=== PATIENT | male | born 1955 | race Caucasian/White ===

== ENCOUNTER 2023-03-17 05:28 | Emergency (ER) | payer MEDICARE, OTHER, SELFPAY ==
[2023-03-17 05:30] VITALS: BP 162/80
[2023-03-17 05:51] VITALS: BMI 27.8
[2023-03-17 05:55] VITALS: BP 124/73
--- NOTE | 2023-03-17 05:55 | ED.GENMED ---
History of Present Illness
General
Chief Complaint: Dizziness
Source: patient
Exam Limitations: none
Time Seen by Provider: 03/17/23 05:55
Travel History
Have you had any contact with someone who has COVID-19?: No
Do you have any symptoms of coronavirus? Fever > 100 degrees, chills, cough, shortness of breath, sore throat, loss of taste or smell, muscle aches, or headache?: No
History of Present Illness
History of Present Illness:
67-year-old male primarily complaining of a burping sensation followed by panic starting at 2 AM. Initial symptoms lasted a few hours. Then seemed to resolve but recurred mildly. Patient checked his blood pressure which was elevated at 180 then
150 systolic. [place] very panicky during this episode. No shearing pain no back pain no exertional symptoms. In addition patient has had vertigo however this has been going on for a year is intermittent usually lasting 10 to 20 seconds. He will
get 1-2 episodes a week. He is not here primarily for this issue. Patient does exercise regularly. He was at the gym 2 days ago doing cardio and lifting without difficulty. He also walks 3 miles yesterday without issues. Patient is worried that
this is cardiac as his friend had GI like symptoms presenting with heart attack.
Past History
Social History
Tobacco: Non-smoker
Personal:
Employment: Employed (Artist)
Review of Systems
Review of Systems
All Other Systems: Not applicable
Constitutional: Denies fever
Respiratory: Denies trouble breathing
ABD/GI: Denies abdominal pain, bloody stools or black stools
Phy Exam
Physical Exam
Physical Exam:
GENERAL: Alert and oriented in no apparent distress
EYE: Orbits normal.
NECK: Supple, no carotid bruit
ENT: Pharynx without erythema
CARDIAC: Regular rate and rhythm without any obvious murmurs.
LUNGS: Clear breath sounds,normal
ABDOMEN: Soft, without focal tenderness or distention
NEUROLOGICAL: Alert and oriented , cranial nerves II through XII intact. Speech normal. [id number] normal. Good upper and lower extremity strength.
SKIN: Warm and dry, no rash or lesion, no discoloration, skin intact.
MUSCULOSKELETAL: No edema,no deformity.Good color
PSYCH: Normal and appropriate interaction.
Course
Orders/Labs/Results
Orders:
Orders
03/17/23 05:34
Electrocardiogram (*1) Urgent
Reason for Study: Vertigo / Dizzy
EKG- Treatment ONCE
03/17/23 06:11
Cardiac Monitoring- Treatment ONCE
IV Insert/Care/Rem.- Treatment PRN
CR Chest - 2 Views Urgent
Comment:
Reason For Exam: cp
Pulse Ox/cont/shift [RESP] Stat
Quantity: 1
03/17/23 06:15
Complete Blood Count/With Diff Urgent
Comprehensive Metabolic Panel Urgent
D-Dimer Urgent
Lipase Urgent
Troponin I Urgent
03/17/23 07:52
EKG- Treatment ONCE
03/17/23 09:05
Troponin I Urgent
03/17/23 09:15
Electrocardiogram (*1) Stat
Reason for Study: Other
Other Reason for Exam: chest pain
Abnormal Lab Results
03/17/23
06:15
Plt Count 506 H 10^3/uL
(130-400)
Glucose 105 H mg/dl
(70-99)
03/17/23 06:15
03/17/23 06:15
Vital Signs
Initial and Last Documented VS:
Initial Vital Signs
Temp Pulse Resp BP Pulse Ox
97.4 F 64 18 162/80 98
03/17/23 05:30 03/17/23 05:30 03/17/23 05:30 03/17/23 05:30 03/17/23 05:30
Last Documented Vital Signs
Temp Pulse Resp BP Pulse Ox
97.4 F 59 14 126/78 98
03/17/23 05:30 03/17/23 09:45 03/17/23 09:45 03/17/23 09:00 03/17/23 09:45
MDM/Problems Addressed
Differential Diagnosis Includes:
I do not feel patient's symptoms of ongoing intermittent vertigo and chest symptoms earlier this morning are related. The vertigo has been intermittent usually once to twice per week for a year. This has been stable. He did have a slightly
worsened episode last week but again this lasted 20 to 30 seconds. He has no acute vertigo symptoms at this time. He denies other neurologic symptoms during events and has a normal neurologic exam now. Again he has no vertigo.
As for his burping sensation and panic feeling this started at 2 AM. He has no cardiac risk factors. He exercises without difficulty. He is not describing dissection symptoms of shearing pain severe chest pain upper back pain etc. EKG is normal.
Workup is in progress. Current blood pressure is 124/74.
*Pulse Oximetry
Patient hypoxic: no
*EKG
Interpreted by ED Provider?: Yes
Interpretation: normal
Comparison EKG: no comparison EKG present
Heart Rate: 61
Rate: normal
Rhythm: sinus
[place]: normal axis
Interval: normal interval
QRS Pattern: normal QRS
Ischemia: no ischemia
*Critical Care Note
Total Time (30-74mins, 75-104mins- exclusive of procedures): Not Applicable
Update Note
Update Note:
Repeat EKG normal sinus rhythm no acute changes. Patient asymptomatic. Repeat troponin negative. Stable for discharge to follow-up
ED Attending Note
-
Portions of this chart may have been created with voice recognition software.� Occasional wrong word or��sound alike� substitutions may have occurred due to the inherent limitations of voice recognition software.
Discharge Plan
Departure
Patient Disposition: Home (Routine Discharge)
Date of Disposition: 03/17/23
Time of Disposition: 10:05
Patient with high blood pressure during this ER visit?: Yes
Discharge Problem:
Anterior chest pain/resolved, Ongoing intermittent vertigo, Mild thrombocytosis
Instructions: Vertigo (a Type of Dizziness) (DC), Chest Pain CBC Follow Up
Prescriptions:
No Action
No Current Medications
0
Referrals:
Donovan Falk, DO [Active] - Next open appointment
UNKNOWN - PT DOES,NOT KNOW [Family Provider] -
Activity Restrictions/Additional Instructions:
Follow-up with your primary physician
Also follow-up with cardiology. They should call you.
I would recommend taking an aspirin per day
Interventions
Interventions:
*Risk Screen - Suicide Last Done: 03/17/23 05:30
*General Assessment Last Done: 03/17/23 05:51
*Neglect/Abuse Screening Last Done: 03/17/23 05:30
ED- Fall Risk Assessment Last Done: 03/17/23 07:08
*ED COVID-19 Vaccine History Last Done: 03/17/23 05:51
ED- Neurological Assessment Last Done: 03/17/23 07:12
ED- Cardiac Assessment Last Done: 03/17/23 07:12
[2023-03-17 06:33] LABS: % Basophils 1.3 % (0-2); % Immature Granulocytes 0.3 % (0-0.5); % Lymphocytes 24.1 % (20.5-51.1); % Monocytes 7.8 % (1.7-9.3); % Neutrophils 66.5 % (42.2-75.2); Absolute Basophils 0.1 10^3/uL (0-0.2); Absolute Lymphocytes 1.5 10^3/uL (1.2-3.4); Absolute Monocytes 0.5 10^3/uL (0.1-0.6); Absolute Neutrophils 4.2 10^3/uL (1.4-6.5); Hematocrit 44.7 % (39.0-52.0); Hemoglobin 15.6 g/dL (13.0-18.0); Mean Corp Hgb Conc. 34.9 g/dL (33.0-37.0); Mean Corpuscular Hgb 30.5 pg (27.0-31.0); Mean Corpuscular Volume 87.5 fL (80.0-94.0); Mean Platelet Volume 9.8 fL (7.4-10.4); Nucleated Red Blood Cells % 0 % (-); Platelet Count 506 10^3/uL (130-400); Red Blood Cell Count 5.11 10^6/uL (4.70-6.10); Red Cell Dist. Width 12.8 % (11.5-14.5); White Blood Cell Count 6.3 10^3/uL (4.8-10.8)
[2023-03-17 06:44] LABS: ALT (SGPT) 22 U/L (0-50); AST (SGOT) 29 U/L (17-59); Albumin 4.1 g/dl (3.5-5.0); Alkaline Phosphatase 67 U/L (38-126); Blood Urea Nitrogen 15 mg/dl (9-20); Calcium 9.5 mg/dl (8.4-10.2); Carbon Dioxide 25 mmol/L (22-30); Chloride 107 mmol/L (98-107); Estimated Creatinine Clearance 95 ml/min; Glucose 105 mg/dl (70-99); Lipase 46 U/L (23-300); Potassium 4.5 mmol/L (3.5-5.1); Sodium 137 mmol/L (135-145); Total Bilirubin 0.7 mg/dl (0.2-1.3); Total Protein 6.6 g/dl (6.3-8.2); eGFR > 60.00
[2023-03-17 06:56] LABS: Troponin I < 0.012 ng/ml
[2023-03-17 07:06] VITALS: BP 134/70
[2023-03-17 07:07] VITALS: BP 134/70
[2023-03-17 07:26] LABS: D-Dimer 0.34 ug/mlFEU (0.00-0.50)
[2023-03-17 08:00] VITALS: BP 130/83
[2023-03-17 09:00] VITALS: BP 126/78
[2023-03-17 09:43] LABS: Troponin I < 0.012 ng/ml
== END 2023-03-17 10:51 | disposition home or self-care (01) ==
LOC: EMR 05:28
PROVIDERS: EMERGENCY PHYSICIAN Emergency Medicine
DX: R07.9 Chest pain, unspecified (principal); R42 Dizziness and giddiness; D75.839 Thrombocytosis, unspecified; I10 Essential (primary) hypertension
CPT/HCPCS: 99285; 71046; 80053; 83690; 84484; 85025; 85379; 93005

== ENCOUNTER → 2023-06-06 08:54 | Outpatient (REF) | payer MEDICARE, OTHER, SELFPAY | LOC: DHCBC MAIN 08:54 | PROVIDERS: ATTENDING PHYSICIAN Internal Medicine Cardiovascular Disease | DX: R07.9 Chest pain, unspecified (principal); R07.89 Other chest pain; R42 Dizziness and giddiness | CPT/HCPCS: 93306 ==

== ENCOUNTER → 2023-06-13 08:06 | Outpatient (REF) | payer MEDICARE, OTHER, SELFPAY | LOC: HWRAD 08:06 | PROVIDERS: ATTENDING PHYSICIAN Internal Medicine Cardiovascular Disease | DX: I77.810 Thoracic aortic ectasia (principal) | CPT/HCPCS: 71275; Q9967 ==

== ENCOUNTER → 2023-06-27 10:32 | Outpatient (REF) | payer MEDICARE, OTHER, SELFPAY | LOC: RCS 10:32 | PROVIDERS: ATTENDING PHYSICIAN Internal Medicine Cardiovascular Disease; FAMILY PHYSICIAN Family Medicine | DX: I77.810 Thoracic aortic ectasia (principal); I25.84 Coronary atherosclerosis due to calcified coronary lesion; R03.0 Elevated blood-pressure reading, without diagnosis of hypertension; R42 Dizziness and giddiness; R07.9 Chest pain, unspecified | CPT/HCPCS: 93017 ==

== ENCOUNTER → 2023-07-25 07:22 | Outpatient (REF) | payer MEDICARE, OTHER, SELFPAY | LOC: DHCBC/DCA 07:22 | PROVIDERS: ATTENDING PHYSICIAN Internal Medicine Cardiovascular Disease; FAMILY PHYSICIAN Family Medicine | DX: R94.30 Abnormal result of cardiovascular function study, unspecified (principal); R07.9 Chest pain, unspecified | CPT/HCPCS: 78452; 93017; A9500 ==

== ENCOUNTER 2023-11-10 12:08 | Emergency (ER) | payer MEDICARE, OTHER, SELFPAY ==
[2023-11-10 12:09] VITALS: BP 143/84
[2023-11-10 12:51] LABS: Hematocrit 51.6 % (39.0-52.0); Hemoglobin 17.7 g/dL (13.0-18.0); Mean Corp Hgb Conc. 34.3 g/dL (33.0-37.0); Mean Corpuscular Hgb 28.2 pg (27.0-31.0); Mean Corpuscular Volume 82.2 fL (80.0-94.0); Platelet Count 1367 10^3/uL (130-400); Red Blood Cell Count 6.28 10^6/uL (4.70-6.10); Red Cell Dist. Width 15.2 % (11.5-14.5); White Blood Cell Count 13.4 10^3/uL (4.8-10.8)
[2023-11-10 12:52] LABS: % Basophils 1.7 % (0-2); % Immature Granulocytes 0.4 % (0-0.5); % Lymphocytes 14.8 % (20.5-51.1); % Monocytes 4.7 % (1.7-9.3); % Neutrophils 78.4 % (42.2-75.2); Absolute Neutrophils 10.5 10^3/uL (1.4-6.5); Mean Platelet Volume 9.4 fL (7.4-10.4)
[2023-11-10 12:53] LABS: Absolute Basophils 0.2 10^3/uL (0-0.2); Absolute Immature Granulocytes 0.1 10^3/uL (0-0.05); Absolute Monocytes 0.6 10^3/uL (0.1-0.6); Nucleated Red Blood Cells % 0 % (-)
[2023-11-10 12:55] LABS: ALT (SGPT) 31 U/L (0-50); AST (SGOT) 32 U/L (17-59); Albumin 4.4 g/dl (3.5-5.0); Alkaline Phosphatase 67 U/L (38-126); Blood Urea Nitrogen 16 mg/dl (9-20); Calcium 10.5 mg/dl (8.4-10.2); Carbon Dioxide 25 mmol/L (22-30); Chloride 104 mmol/L (98-107); Glucose 93 mg/dl (70-99); Potassium 5.1 mmol/L (3.5-5.1); Sodium 140 mmol/L (135-145); Total Bilirubin 0.9 mg/dl (0.2-1.3); Total Protein 6.7 g/dl (6.3-8.2); eGFR > 60.00
--- NOTE | 2023-11-10 14:17 | ED.GENMED ---
ED Provider Triage
-
68yoM here with diplopia that began at 8:30am after exercising. Worse in L eye and worse when looking down. Hx of the same but previously only lasted a few seconds. Has never lasted this long before. Slight headache. Otherwise asymptomatic.
L eye 8:30, double vision when looking down, improves when covering each eye, slight headache, prescription glasses
History of Present Illness
General
Chief Complaint: Visual Problem
Past History
Social History
Tobacco: Non-smoker
Personal:
Employment: Employed (Artist)
Course
Orders/Labs/Results
Orders:
Orders
11/10/23 12:13
CT Head W/o Iv Contrast Urgent
Comment: started around 830am today
Reason For Exam: double vision left eye when looks down
11/10/23 12:30
Complete Blood Count/With Diff Urgent
Comprehensive Metabolic Panel Urgent
Abnormal Lab Results
11/10/23
12:30
WBC 13.4 H 10^3/uL
(4.8-10.8)
RBC 6.28 H 10^6/uL
(4.70-6.10)
RDW 15.2 H %
(11.5-14.5)
Plt Count 1367 H 10^3/uL
(130-400)
Abs Immat Gran (auto) 0.1 H 10^3/uL
(0-0.05)
Absolute Neuts (auto) 10.5 H 10^3/uL
(1.4-6.5)
Neutrophils % 78.4 H %
(42.2-75.2)
Lymphocytes % 14.8 L %
(20.5-51.1)
Calcium 10.5 H mg/dl
(8.4-10.2)
11/10/23 12:30
11/10/23 12:30
Vital Signs
Initial and Last Documented VS:
Initial Vital Signs
Temp Pulse Resp BP Pulse Ox
98 F 67 16 143/84 98
11/10/23 12:09 11/10/23 12:11/10/23 12:11/10/23 12:11/10/23 12:09
Last Documented Vital Signs
Temp Pulse Resp BP Pulse Ox
98 F 67 16 143/84 98
11/10/23 12:09 11/10/23 12:11/10/23 12:11/10/23 12:09 11/10/23 12:09
ED Attending Note
-
Portions of this chart may have been created with voice recognition software.� Occasional wrong word or��sound alike� substitutions may have occurred due to the inherent limitations of voice recognition software.
Discharge Plan
Departure
Prescriptions:
No Action
No Current Medications
0
Interventions
Interventions:
*Risk Screen - Suicide Last Done: 11/10/23 12:09
*Neglect/Abuse Screening Last Done: 11/10/23 12:09
Discharge Date and Time
Print Language: PRYDEINIG
--- NOTE | 2023-11-10 14:39 | ED.PDOC.TRB ---
ED Provider Triage
-
Patient seen by provider in Triage?: Seen in Triage
68yoM here with diplopia that began at 8:30am today after exercising. Worse in L eye and worse when looking down. Hx of the same but previously only lasted a few seconds. Has never lasted this long before. Slight headache. Otherwise asymptomatic.
Attestation: A medical screening examination has been initiated by a qualified medical provider. Based on the assessment performed at this time, it has been determined that an emergent medical condition may exist and the patient has been informed
that further medical evaluation and possible additional diagnostic testing may be needed.
HPI:
GENERAL: Alert , in no apparent distress
EYE: No visual abnormalities. PERRL. EOMs intact.
NECK: Trachea midline
ENT: No visible abnormalities.
LUNGS: No acute respiratory distress
NEUROLOGICAL: Alert and oriented
SKIN: Skin intact. No visible changes.
MUSCULOSKELETAL: Moving extremities normally
PSYCH: Normal and appropriate interaction.
This is a medical evaluation conducted in person to initiate diagnostic evaluation and provide initial therapeutics. Please see further documentation by the treating clinician.
Will check basic labs and CT head.
--- NOTE | 2023-11-10 15:22 | ED.GENMED ---
History of Present Illness
General
Chief Complaint: Visual Problem
Time Seen by Provider: 11/10/23 15:21
History of Present Illness
History of Present Illness:
HPI: Diplopia that began at 8:30am today after exercising. Symptoms are most noticeable when he looks downward. Since April, he has had 3 other similar episodes lasting about a minute. He feels that symptoms are ongoing since 830 but very subtle
currently. They were rather significant when they for started. Minimal left-sided periorbital discomfort. No other symptoms.
EXAM:
GENERAL: Well appearing in no distress
HEENT: Moist oral mucosa
CARDIOVASCULAR: Normal heart rate, regular rhythm, No chest wall tenderness
PULMONARY: No respiratory distress
ABDOMEN: Soft with no peritoneal signs, no tenderness
NEUROLOGIC: Cranial nerves normal, excellent strength all extremities, no coordination deficits
PSYCHIATRIC: Appropriate mental status, normal insight and judgement
EXTREMITIES: Nontender, no edema, moves all extremities equally
SKIN: No rash, no lesions
TIME OF INITIAL ENCOUNTER: 3:25 PM
NUMBER AND COMPLEXITY OF PROBLEMS ADDRESSED AT THE ENCOUNTER
� Chronic conditions affecting care: High blood pressure, hyperlipidemia
� Acute Exacerbation and/or Progression of Chronic Illness: This is an acute problem
� Differential Diagnosis includes: Acute cranial nerve palsy, intracranial mass, poorly controlled blood pressure, diabetes
AMOUNT AND/OR COMPLEXITY OF DATA TO BE REVIEWED AND ANALYZED
� I performed an independent evaluation of and my interpretation is:
EKG:
CT: CT head unremarkable
X-rays:
Laboratory Studies: White count 13.4, hemoglobin 17.7, chemistries unremarkable
Other:
� Review of other/old records: I reviewed echo report from May 2023
� Clinical information was obtained by an independent historian: I spoke to family member at bedside
� Prescriptions/Medications Considered but not given:
� Further testing considered but not performed:
RISK OF COMPLICATIONS AND/OR MORBIDITY OR MORTALITY OF PATIENT MANAGEMENT
� Social determinants of health affecting care: Lives at home
� Discussion with other providers: Notified Dr. Oviedo at 3:30 [facility] eyepatch, outpatient follow-up with neurology and ophthalmology.
� Escalation of care including admission/observation vs risk of discharge considered: CT head negative and unremarkable cranial nerve examination currently. However the patient does have some mild ongoing diplopia primarily when
he looks downward. Discussed with neurology. Very minimal symptoms at time of discharge.
Past History
Social History
Tobacco: Non-smoker
Personal:
Employment: Employed (Artist)
Phy Exam
Physical Exam
Physical Exam:
See HPI
Course
Orders/Labs/Results
Orders:
Orders
11/10/23 12:13
CT Head W/o Iv Contrast Urgent
Comment: started around 830am today
Reason For Exam: double vision left eye when looks down
11/10/23 12:30
Complete Blood Count/With Diff Urgent
Comprehensive Metabolic Panel Urgent
Abnormal Lab Results
11/10/23
12:30
WBC 13.4 H 10^3/uL
(4.8-10.8)
RBC 6.28 H 10^6/uL
(4.70-6.10)
RDW 15.2 H %
(11.5-14.5)
Plt Count 1367 H 10^3/uL
(130-400)
Abs Immat Gran (auto) 0.1 H 10^3/uL
(0-0.05)
Absolute Neuts (auto) 10.5 H 10^3/uL
(1.4-6.5)
Neutrophils % 78.4 H %
(42.2-75.2)
Lymphocytes % 14.8 L %
(20.5-51.1)
Calcium 10.5 H mg/dl
(8.4-10.2)
11/10/23 12:30
11/10/23 12:30
Vital Signs
Initial and Last Documented VS:
Initial Vital Signs
Temp Pulse Resp BP Pulse Ox
98 F 67 16 143/84 98
11/10/23 12:09 11/10/23 12:09 11/10/23 12:09 11/10/23 12:09 11/10/23 12:09
Last Documented Vital Signs
Temp Pulse Resp BP Pulse Ox
98 F 62 13 157/66 99
11/10/23 12:09 11/10/23 15:59 11/10/23 15:59 11/10/23 15:59 11/10/23 15:59
*Critical Care Note
Total Time (30-74mins, 75-104mins- exclusive of procedures): Not Applicable
ED Attending Note
-
Portions of this chart may have been created with voice recognition software.� Occasional wrong word or��sound alike� substitutions may have occurred due to the inherent limitations of voice recognition software.
Discharge Plan
Departure
Patient Disposition: Home (Routine Discharge)
Date of Disposition: 11/10/23
Time of Disposition: 16:08
Patient with high blood pressure during this ER visit?: Yes
Discharge Problem:
Diplopia
Instructions: Double Vision (DC), BLOOD PRESSURE
Prescriptions:
No Action
No Current Medications
0
Referrals:
Sarabjit Oviedo MD [Active] - Next open appointment
Praveena Nichols MD [Active] - Next open appointment
Roc Davila DO [Family Provider] -
Activity Restrictions/Additional Instructions:
Your blood pressure was elevated here�I recommend you follow-up with your primary care doctor for recheck. I spoke to Dr. Sarabjit Oviedo today. 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 He suggest that he could try using an eye
patch. He recommends that you follow-up with neurology as an outpatient as well as ophthalmology�I have given you the contact of the manager inspection on-call, Dr. Nichols for local neurologist. CAT scan of the brain shows no acute abnormality.
Interventions
Interventions:
*Risk Screen - Suicide Last Done: 11/10/23 12:09
*General Assessment Last Done: 11/10/23 16:00
*Neglect/Abuse Screening Last Done: 11/10/23 12:09
ED- Fall Risk Assessment Last Done: 11/10/23 16:00
*ED COVID-19 Vaccine History Last Done: 11/10/23 16:00
ED- Neurological Assessment Last Done: 11/10/23 16:00
ED-EENT Assessment Last Done: 11/10/23 16:00
Discharge Date and Time
Print Language: TAJIK
[2023-11-10 15:59] VITALS: BP 157/66
== END 2023-11-10 16:42 | disposition home or self-care (01) ==
LOC: EMR 12:08
PROVIDERS: Emergency Medicine; EMERGENCY PHYSICIAN Emergency Medicine; FAMILY PHYSICIAN Family Medicine
DX: H53.2 Diplopia (principal); I10 Essential (primary) hypertension; E78.5 Hyperlipidemia, unspecified
CPT/HCPCS: 99284; 70450; 80053; 85025